=== PATIENT | female | born 1980 | race Caucasian/White ===

== ENCOUNTER → 2017-07-01 | Outpatient (CLI) | payer OTHER ==
[2017-07-01 13:36] VITALS: BP 138/87; PULSE 116; RESP 16; TEMP 98.6; BMI 50.5
--- NOTE | 2017-07-01 14:21 | P.HPOB ---
History of Present Illness H&P Date: 07/01/17 Chief Complaint: The patient is here for her routine gynecologic exam. This is a 36-year-old G0 with an LMP of 06/22/2017. She states she had an episode of vulvar pruritus prior to her menses 2 months ago. She states that lasted only about 2 days. She did not have any unusual discharge or odor at that time. She is otherwise without complaints. Review of Systems She has gained about 6 pounds over the last 2 years. She denies respiratory, cardiac, or G.I. problems. Past Medical History Additional Past Medical History / Comment(s): Celiac disease which is diet controlled. 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 Additional Past Surgical History / Comment(s): Upper endoscopy and colonoscopy in 2012. Past Psychological History: No Psychological Hx Reported Smoking Status: Never smoker Past Alcohol Use History: None Reported Past Drug Use History: None Reported Additional History: She is single and is not seeing anybody at this time. 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 [employer] - Past Family History Mother Family Medical History: Thyroid Disorder Medications and Allergies Home Medications Medication Instructions Recorded Confirmed Type Cholecalciferol (Vitamin D3) 5,000 unit PO WEEKLY 07/01/17 07/01/17 History [Vitamin D3] Allergies Allergy/AdvReac Type Severity Reaction Status Date / Time No Known Allergies Allergy Verified 07/01/17 14:12 Exam - Vital Signs Vital signs: Vital Signs Temp Pulse Resp BP 07/01/17 13:29 98.6 F 116 H 16 138/87 Intake and Output 06/30/17 07/01/17 07/01/17 22:59 06:59 14:59 Other: Weight 142 kg Height 5'6" BMI 22.9. This is a well-developed well-nourished white female who is alert and oriented times 3 in no acute distress. HEENT: Within normal limits. NECK: Supple without mass or thyromegaly. CHEST AND LUNGS: Clear to auscultation. HEART: Regular rate and rhythm. BREASTS: Are without mass or discharge. AXILLARY EXAM: Negative for adenopathy. BACK: Negative for CVA tenderness. ABDOMEN: Soft, nontender, without palpable masses. PELVIC EXAM: Normal external genitalia. The introitus is virginal and a small speculum was used without difficulty. Cervix and vagina appear normal. There is no unusual discharge. There is no evidence of prolapse. The uterus is midposition, nongravid size and nontender. There are no palpable adnexal masses or tenderness. RECTAL EXAM: deferred EXTREMITIES: Nontender. IMPRESSION: 1. 36-year-old gynecologically healthy female. 2. Brief vulvar pruritus 2 months ago which resolved with no evidence of vaginitis at this time. PLAN: 1. Pap smear was performed. 2. Self breast awareness was discussed. 3. Osteoporosis prevention was discussed. 4. She will return in one year or PRN.
== END ==
LOC: WWCWWP 13:17
PROVIDERS: ATTEND Obstetrics & Gynecology
DX: Z53.9 Procedure and treatment not carried out, unspecified reason (principal)

== ENCOUNTER → 2018-12-23 | Outpatient (CLI) | payer BC ==
[2018-12-23 10:49] VITALS: BP 143/81; PULSE 70; RESP 16; TEMP 98.7; BMI 20.1
--- NOTE | 2018-12-23 12:05 | P.HPOB ---
History of Present Illness H&P Date: 12/23/18 Chief Complaint: The patient is here for her routine gynecologic exam. This is a 38-year-old G0 with an LMP of 12/06/2018. The patient states she has had some changes with her menstrual period. They are regular every 24 days. They are now lasting 6-7 days when they previously were about 5 days long. The second and third day to be heavier and she has to change her protection about every 1-1/2 hours. She does have to use Motrin on the heavy days for cramps and discomfort. Every other month she tends to have a nauseous feeling during her menstrual periods. She also feels like her IBS might be aggravated by her periods at those times. She has also been experiencing a slight vulvar pruritus for the past 1-2 weeks. She denies discharge or odor. Review of Systems The patient has lost about 10 pounds over the past year. She denies respiratory or cardiac problems. GI: Occasional IBS symptoms. Past Medical History Additional Past Medical History / Comment(s): Celiac disease which is diet con trolled. 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 History of Any Multi-Drug Resistant Organisms: None Reported Additional Past Surgical History / Comment(s): Upper endoscopy and colonoscopy in 2012. Past Psychological History: No Psychological Hx Reported Smoking Status: Never smoker Past Alcohol Use History: None Reported Past Drug Use History: None Reported Additional History: She is single and is not seeing anybody at this time. 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 - Past Family History Mother Family Medical History: Thyroid Disorder Medications and Allergies Home Medications Medication Instructions Recorded Confirmed Type Bacillus Coagulans/Inulin 1 each PO DAILY 12/23/18 12/23/18 History [Probiotic with Prebiotic Cap] Pnv No.95/Ferrous Fum/Folic AC 1 each PO DAILY 12/23/18 12/23/18 History [ Multivitamin Tablet] Allergies Allergy/AdvReac Type Severity Reaction Status Date / Time No Known Allergies Allergy Verified 12/23/18 10:49 Exam Vital Signs Temp Pulse Resp BP Pulse Ox 12/23/18 10:43 98.7 F 70 16 143/81 100 Intake and Output 12/22/18 12/23/18 12/23/18 22:59 06:59 14:59 Other: Weight 56.699 kg Height 5 feet 6 inches, weight 125 pounds, BMI 20.2. This is a well-developed well-nourished white female who is alert and oriented times 3 in no acute distress. HEENT: Within normal limits. NECK: Supple without mass or thyromegaly. CHEST AND LUNGS: Clear to auscultation. HEART: Regular rate and rhythm. BREASTS: Are without mass or discharge. AXILLARY EXAM: Negative for adenopathy. BACK: Negative for CVA tenderness. ABDOMEN: Soft, nontender, without palpable masses. PELVIC EXAM: Normal external genitalia. There is no significant erythema and there are no lesions. Cervix and vagina appear normal. There is no unusual discharge. There is no evidence of prolapse. The uterus is anteverted and tilted slightly to the right and is nontender. This finding is consistent with her 2014 exam and normal pelvic ultrasound done in 2014. There are no palpable adnexal masses or tenderness. RECTAL EXAM: negative for mass or tenderness. EXTREMITIES: Nontender. IMPRESSION: 1. 38-year-old female with normal gynecologic exam. 2. Mild hypermenorrhea without any significant physical findings. 3. Slight vulvar pruritus 1-2 weeks without significant physical findings. No evidence of vaginitis. 4. Mild blood pressure elevation. PLAN: 1. Pap smear was deferred since she had a normal one on 07/18/2017. 2. Self breast awareness was discussed with the patient. 3. Trial of meclofenamate sodium 100 mg 3 times a day when necessary for heavy menstrual flow up to 6 days per cycle. She will keep a menstrual calendar. 4. Kenalog 0.1% cream twice a day when necessary for vulvar pruritus. 5. I recommended that she check her own blood pressure on a regular basis. She was instructed to follow-up with Dr. Charlton for blood pressure elevations. 6. She was advised to return in one year for her annual well woman exam. She will also return if problems or no improvement with her menstrual periods
== END | disposition home or self-care (01) ==
LOC: WWCWWP 10:35
PROVIDERS: ATTEND Obstetrics & Gynecology
DX: Z53.9 Procedure and treatment not carried out, unspecified reason (principal)

== ENCOUNTER → 2019-10-26 | Outpatient (CLI) | payer BC ==
[2019-10-26 15:39] VITALS: BP 152/90; PULSE 84; RESP 18; TEMP 98.6
--- NOTE | 2019-10-26 17:47 | P.HPOB ---
History of Present Illness H&P Date: 10/26/19 Chief Complaint: Abnormal vaginal discharge and vaginal spotting that started 1 month ago. This is a 39-year-old G0 with an LMP of 10/15/2019. The patient's boyfriend is status post vasectomy. The patient was having heavier menstrual periods that were more crampy. The patient tried meclofenamate sodium with no significant improvement. She was started on oral contraception in January 2019 by her PCP. She was started on Loestrin 03/22 and was given instructions to take them continuously without the inactive pills. 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 About 1 month ago she developed a clear yellowish discharge with pruritus and vaginal odor that would fill a panty liner over 1 day's time. This lasted for about 1-1 /2 weeks and did improve but went into some vaginal spotting and light bleeding. She no longer has the pruritus or vaginal odor. The light vaginal bleeding and spotting has gone on for about 11 days. Review of Systems She has lost about 7 pounds over the past year. She denies respiratory or cardiac problems. GI: Constipation. Past Medical History Additional Past Medical History / Comment(s): Celiac disease which is diet controlled. 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 History of Any Multi-Drug Resistant Organisms: None Reported Additional Past Surgical History / Comment(s): Upper endoscopy and colonoscopy in 2012. Past Psychological History: No Psychological Hx Reported Smoking Status: Never smoker Past Alcohol Use History: None Reported Past Drug Use History: None Reported Additional History: She is single and has had a boyfriend since about April 2019. She is sexually active. 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 - Past Family History Mother Family Medical History: Thyroid Disorder Medications and Allergies Home Medications Medication Instructions Recorded Confirmed Type Pnv No.95/Ferrous Fum/Folic AC 1 each PO DAILY 12/23/18 10/26/19 History [ Multivitamin Tablet] Triamcinolone 0.1% Cream [Kenalog 1 applicatio TOPICAL BID PRN #30 gm 12/23/18 10/26/19 Rx 0.1% Cream] Norethindrone-E.estradiol-Iron 1 each PO DAILY 10/26/19 10/26/19 History [Aurovela Fe 1-20 Tablet] Omeprazole 20 mg PO DAILY 10/26/19 10/26/19 History Triamcinolone 0.025% Cream 1 applic TOPICAL DAILY 10/26/19 10/26/19 History [Kenalog 0.025% Cream] Allergies Allergy/AdvReac Type Severity Reaction Status Date / Time gluten Allergy Nausea & Unverified 10/26/19 15:32 Vomiting & Diarrhea Exam Vital Signs Temp Pulse Resp BP Pulse Ox 10/26/19 15:37 98.6 F 84 18 152/90 98 Intake and Output 10/26/19 10/26/19 10/26/19 06:59 14:59 22:59 Other: Weight 53.524 kg Height 5 feet 6 inches, weight 118 pounds, BMI 19.0. This is a well-developed well-nourished white female who is alert and oriented times 3 in no acute distress. Physical examination was limited to address her complaints. ABDOMEN: Soft, nontender, without palpable masses. PELVIC EXAM: Normal external genitalia. Cervix and vagina appear normal. There is no unusual discharge. There is no evidence of prolapse. The uterus is midposition, nongravid size and nontender. There are no palpable adnexal masses or tenderness. RECTAL EXAM: Deferred IMPRESSION: 1. 39-year-old female on continuous low-dose oral contraception used for hypermenorrhea and dysmenorrhea. 2. Breakthrough bleeding on the continuous oral contraception with light bleeding in August of this year and 10/14/2021 present. 3. Abnormal vaginal discharge 1 month ago with pruritus and the vaginal odor. These symptoms have improved and there are no significant physical findings on examination. Differential diagnosis will include Asiya vaginitis, bacterial vaginosis, GC, Chlamydia or Trichomonas. Physiologic discharge is also possible. 4. Blood pressure elevation. PLAN: 1. GC and Chlamydia testing was obtained from the cervix. Affirm testing for asiya, Gardnerella, and Trichomonas was also obtained from the vagina. 2. We had a long discussion regarding her breakthrough bleeding on low-dose oral contraception which is being used for her hypermenorrhea and dysmenorrhea. We discussed the option of changing to a higher estrogen dose control pill such as Loestrin .07/30. When we discussed this, I had not realize that her blood pressure was elevated. I have tried to contact the patient by phone to discuss other options. When I do get ahold of her we will discuss options such as the Mirena IUD, endometrial ablation, and continuation of oral contraception with close blood pressure monitoring. I have left a voicemail message for the patient to call me back so we can discuss this. 3. She will be due for her annual examination in approximately 3 months and I recommended that she make an appointment for this. Addendum: I was able to reach the patient to discuss her blood pressure elevation. She states that she has had some issues with slightly higher blood pressure when she is in a doctor's office but has been able to take her blood pressure on a regular basis at work and blood pressures have been normal. We discussed options such as the Mirena IUD for her menstrual problems as well as options such as endometrial ablation if she does not desire childbearing. She would like to continue on the control pills. We will have a trial with Loestrin 1.5/30 to be used and a semi-continuous fashion. She will use the inactive pills about every 3-4 months and we'll skip the inactive pills and start the next pack of pills during the other months. She states she will check her blood pressure on a regular basis at work and altered times of day when she checks it. She will keep a log of her blood pressures and she will contact me if she is having blood pressures consistently over 140/90. The electronic prescription for the control pills will be sent to my her pharmacy in [place]. Since she has been taking her other pills continuously without the inactive pills, she was instructed to make the change on Friday to the new pills.
[2019-10-27 03:53] LABS: Gardnerella Negative (Negative); Source Vagina; Trichomonas Negative (Negative)
--- NOTE | 2019-10-27 09:23 | P.PN ---
Progress Note - Text Progress Note Date: 10/27/19 OUTPATIENT FOLLOW-UP NOTE TEST(S)/RESULTS: Test results from a 10/26/2019 include affirm testing which was positive for Asiya and negative for trichomonas and Gardnerella. METHOD OF NOTIFICATION: She was notified by phone PATIENT COMMENTS: The patient was having symptoms as described in the H&P. She was having discharge and itching that started about a month ago but did improve. She states that today she has been having itching as well. She has taken her blood pressure 2 times since she was here yesterday and they were both normal. The systolic blood pressure today was 118 and she does not remember the diastolic number. DIAGNOSIS: Asiya vaginitis. DISCUSSION: PLAN: Diflucan 150 mg by mouth 1. She will continue to check her own blood pressure on a regular basis and call if she is having blood pressure elevations. GC and chlamydia screening is still pending. She will also return in about 3 months for her annual examination. The electronic prescription will be sent to my her pharmacy in [place].
[2019-10-28 08:16] LABS: C. trachomatis,PCR Negative (Neg,Equiv); Chlamydia trachomatis Source Cervix; N. gonorrhoeae,PCR Negative (Neg,Equiv); Neisseria Source Cervix
== END | disposition home or self-care (01) ==
LOC: WWCWWP 15:14
PROVIDERS: ATTEND Obstetrics & Gynecology
DX: Z11.3 Encounter for screening for infections with a predominantly sexual mode of transmission (principal); N89.8 Other specified noninflammatory disorders of vagina
CPT/HCPCS: 87480; 87491; 87510; 87591; 87660

== ENCOUNTER 2019-11-26 06:41 | Day surgery (SDC) | payer BC ==
[2019-11-24 14:20] VITALS: BMI 18.6
[~2019-11-26 06:41] MED LIST: LACTATED RINGERS 1,000 ML IV SCH; LIDOCAINE 1% (10MG/ML) FOR IV START INTRADERMA PRN
[2019-11-26 07:13] VITALS: TEMP 98.9
[2019-11-26] MEDS ORDERED: PROPOFOL 10 MG/ML 20 ML VIAL IV ONE (07:34)
--- NOTE | 2019-11-26 08:01 | P.PCN ---
Date of Procedure: 11/26/19 Procedure(s) Performed: BRIEF HISTORY: Patient is a 39-year-old pleasant female scheduled for an elective colonoscopy as a part of evaluation of abdominal pain and change in bowel habits for the last several years duration. He hasn't been progressively getting worse. PROCEDURE PERFORMED: Colonoscopy with random biopsies. PREOPERATIVE DIAGNOSIS: Lower abdominal pain and change in bowel habits. IV sedation per Anesthesia. PROCEDURE: After informed consent was obtained, the patient, was brought into the endoscopy unit. IV sedation was administered by Anesthesia under continuous monitoring. Digital rectal examination was normal. Initially the Olympus CF-160 flexible video colonoscope was then inserted in the rectum, gradually advanced into the cecum without any difficulty. Careful examination was performed as the scope was gradually being withdrawn. Ileocecal valve and the appendiceal orifice were visualized and appeared normal. Prep was excellent. Terminal ileum was intubated and 20 cm visualized that had some lymphoid hyperplasia and biopsies were done from this area. Mucosa of the cecum, ascending colon, transverse colon, descending colon, sigmoid colon, and rectum appeared normal. Random biopsies were done from ascending and descending colon to rule out colitis. Retroflexion was performed in the rectum and no lesions were seen. The patient tolerated the procedure well. IMPRESSION: Normal-appearing colon from rectum to cecum with no evidence of colitis or colorectal neoplasia Normal-appearing terminal ileum . RECOMMENDATIONS: Findings of this examination were discussed with the patient as well as her family. She was advised to follow with the biopsy results. She will be seen in office if needed based on her symptoms.
[2019-11-26 08:02] VITALS: RESP 16
[2019-11-26 08:14] VITALS: BP 119/68; PULSE 78
== END 2019-11-26 08:34 | disposition home or self-care (01) ==
LOC: ORWHC2ENDO 06:41
PROVIDERS: ATTEND Internal Medicine Gastroenterology
DX: K58.9 Irritable bowel syndrome, unspecified (principal); K63.89 Other specified diseases of intestine; Z79.899 Other long term (current) drug therapy; Z91.018 Allergy to other foods; Z98.890 Other specified postprocedural states
CPT/HCPCS: 81025; 88305; 45380; J2704

== ENCOUNTER → 2019-12-22 | Outpatient (CLI) | payer BC ==
[2019-12-22 08:01] VITALS: BP 147/82; PULSE 81; RESP 18; TEMP 98.5
--- NOTE | 2019-12-22 08:59 | P.HPOB ---
History of Present Illness H&P Date: 12/22/19 Chief Complaint: The patient is here for her routine gynecologic exam. This is a 39-year-old G0 with an LMP of 12/16/2019. The patient was previously using Loestrin 1/20 continuously for control and for her history of hypermenorrhea. She had done well with this for several months. She previously was having light bleeding every other month on continuous oral contraception. In the month of October light vaginal bleeding and spotting went on free prolonging the length of time. She was started on Loestrin 1.5/30 to see if a higher control pill dose would help with the breakthrough bleeding. She took these continuously and bleeding became heavier. After she called on 12/14/2019 because of the abnormal bleeding, she was instructed to discontinue the oral contraception that week and restart oral contraception the following Friday. 2 days after stopping the oral contraception, her bleeding became very heavy for 2 days. It was travel med surg rn on the third day, but again became heavier the following day. She started a new pack of Loestrin 1/20 on that third day of heavier bleeding which was 12/19/2019. The bleeding is now travel med surg rn. She would like to continue on with Loestrin 1/20. She has checked her own blood pressure and the systolic was in the 130s. She is otherwise without complaints. Review of Systems She has lost about 10 pounds with exercise earlier in the year. She is now at her desired weight. She denies respiratory or cardiac problems. GI: She has been having problems with constipation and diarrhea and has been diagnosed with irritable bowel syndrome. Past Medical History Additional Past Medical History / Comment(s): Celiac disease which is diet controlled. 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 History of Any Multi-Drug Resistant Organisms: None Reported Additional Past Surgical History / Comment(s): Upper endoscopy and colonoscopy in 2012. Colonoscopy 11/26/2019 Past Anesthesia/Blood Transfusion Reactions: No Reported Reaction Past Psychological History: No Psychological Hx Reported Smoking Status: Never smoker Past Alcohol Use History: None Reported Past Drug Use History: None Reported Additional History: She is single and has been with her boyfriend since April 2019. She is sexually active and does not live with him. 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 - Past Family History Mother Family Medical History: Thyroid Disorder Medications and Allergies Home Medications Medication Instructions Recorded Confirmed Type Pnv No.95/Ferrous Fum/Folic AC 1 each PO DAILY 12/23/18 12/22/19 History [ Multivitamin Tablet] Omeprazole 20 mg PO DAILY PRN 10/26/19 12/22/19 History Triamcinolone 0.025% Cream 1 applic TOPICAL DAILY 10/26/19 12/22/19 History [Kenalog 0.025% Cream] L.acidoph,Paracasei, B.lactis 1 each PO DAILY 11/24/19 12/22/19 History [Probiotic] Norethindrone-E.estradiol-Iron 1 tab PO HS 11/24/19 12/22/19 History [Loestrin Fe 1.5-30 Tablet] Ascorbic Acid [Vitamin C] 500 mg PO DAILY 12/22/19 12/22/19 History Ferrous Sulfate [Feosol] 325 mg PO DAILY 12/22/19 12/22/19 History Allergies Allergy/AdvReac Type Severity Reaction Status Date / Time gluten Allergy Nausea & Verified 12/22/19 07:55 Vomiting & Diarrhea Exam Vital Signs Temp Pulse Resp BP Pulse Ox 12/22/19 07:59 98.5 F 81 18 147/82 100 Intake and Output 12/21/19 12/22/19 12/22/19 22:59 06:59 14:59 Other: Weight 55.338 kg Repeat blood pressure 130/62. Height 5 feet 5 inches, weight 122 pounds, BMI 20.3. This is a well-developed well-nourished white female who is alert and oriented times 3 in no acute distress. HEENT: Within normal limits. NECK: Supple without mass or thyromegaly. CHEST AND LUNGS: Clear to auscultation. HEART: Regular rate and rhythm. BREASTS: Are without mass or discharge. AXILLARY EXAM: Negative for adenopathy. BACK: Negative for CVA tenderness. ABDOMEN: Soft, nontender, without palpable masses. PELVIC EXAM: Normal external genitalia. Cervix and vagina appear normal. There is a minimal amount of dark blood in the vagina. There is no unusual discharge. There is no evidence of prolapse. The uterus is midposition, nongravid size and nontender. There are no palpable adnexal masses or tenderness. RECTAL EXAM: Deferred EXTREMITIES: Nontender. IMPRESSION: 1. 39-year-old female with normal gynecologic exam. 2. Recent dysfunctional uterine bleeding on continuous oral contraception. PLAN: 1. Pap smear was performed. 2. Self breast awareness was discussed with the patient. 3. The patient had a withdrawal bleed this past week after stopping the continuous oral contraception on 12/14/2019. Loestrin 120 was restarted on 12/19/2019 and her bleeding seems to have decreased. She understands that she may have some irregular bleeding this month and at the dysfunctional uterine bleeding may have been from some endometrial overgrowth after using prolonged continuous oral contraception. I have recommended that she take the oral contraception cyclically with 1 week of inactive pills or no pills after 3 weeks of active pills. She should do this for at least 2-3 months and until she has regular menstrual periods. She was instructed to call if she continues to have dysfunctional bleeding. If they are regular when she has been using cyclic oral contraception, we can consider semi-continuous oral contraception where every 3 or 4 packs she does use the inactive pills for 1 week. A prescription for Loestrin 120s will be sent to my her pharmacy in [place]. 4. The patient was instructed to check her blood pressure on a regular basis and to call if they are consistently high. 5. She is to return in approximately 4-6 months for a blood pressure check and a recheck of her control pills. She will continue to use a menstrual calendar. 6. She will also return in one year and as needed.
--- NOTE | 2020-01-04 16:37 | P.PN ---
Progress Note - Text Progress Note Date: 01/04/20 OUTPATIENT FOLLOW-UP NOTE TEST(S)/RESULTS: Pap smear from 12/22/2019 showed low-grade ANNETTE. METHOD OF NOTIFICATION: She was notified by phone. PATIENT COMMENTS: She states she has not had any problems with abnormal Pap smears in the past. She continues to have some irregular bleeding on the control pills. DIAGNOSIS: Low-grade ANNETTE Pap smear. DISCUSSION: We will await the high-risk HPV testing which is pending at this time. If this is negative, plan repeating both tests in 12 months. If it is positive she will be referred for colposcopic examination. If she continues to have abnormal breakthrough bleeding with oral contraception, we will also consider endometrial biopsy or referral for further evaluation. PLAN: Await high-risk HPV testing as above.
== END | disposition home or self-care (01) ==
LOC: WWCWWP 07:46
PROVIDERS: ATTEND Obstetrics & Gynecology
DX: Z53.9 Procedure and treatment not carried out, unspecified reason (principal)

== ENCOUNTER → 2020-03-10 | Outpatient (CLI) | payer BC ==
[2020-03-10 16:49] LABS: Basophils % (A) 1 %; Eosinophils # (A) 0.2 k/uL (0-0.7); Eosinophils % (A) 3 %; HGB 10.4 gm/dL (11.4-16.0); Lymphocytes # (A) 1.5 k/uL (1.0-4.8); Lymphocytes % (A) 34 %; MCH 29.5 pg (25.0-35.0); MCHC 31.6 g/dL (31.0-37.0); MCV 93.2 fL (80.0-100.0); Mean Platelet Volume 7.4; Monocytes # (A) 0.2 k/uL (0-1.0); Monocytes % (A) 5 %; Neutrophils # (A) 2.4 k/uL (1.3-7.7); Neutrophils % (A) 55 %; Platelet Count 263 k/uL (150-450); RBC 3.54 m/uL (3.80-5.40); WBC 4.4 k/uL (3.8-10.6)
== END | disposition home or self-care (01) ==
LOC: LABPAT 15:59
PROVIDERS: ATTEND Obstetrics & Gynecology
DX: Z01.818 Encounter for other preprocedural examination (principal); N93.8 Other specified abnormal uterine and vaginal bleeding
CPT/HCPCS: 36415; 85025

== ENCOUNTER 2020-04-03 10:28 | Day surgery (SDC) | payer BC ==
[2020-03-30 09:01] VITALS: BMI 19.3
[~2020-04-03 10:28] MED LIST changes: -LACTATED RINGERS 1,000 ML IV SCH; -LIDOCAINE 1% (10MG/ML) FOR IV START INTRADERMA PRN; +Pre Op ABX Message 1 EACH MISC MISCELLANE ONE
[2020-04-03 11:04] VITALS: RESP 16
[2020-04-03] MEDS ORDERED: ONDANSETRON 4 MG/2 ML VIAL ONE (11:11)
[2020-04-03] MEDS ORDERED: LACTATED RINGERS 1,000 ML IV ONE ×2 (11:13→13:22)
[2020-04-03] MEDS ORDERED: LIDOCAINE 1% (10MG/ML) FOR IV START INTRADERMA ONE (11:13)
[2020-04-03] MEDS ORDERED: DEXAMETHASONE SOD PHOSPHATE 10 MG/ML 1 ML VIAL IV ONE (11:14)
[2020-04-03] MEDS ORDERED: ONDANSETRON 4 MG/2 ML VIAL IVP ONE ×2 (11:14→13:22)
[2020-04-03] MEDS ORDERED: MIDAZOLAM 2 MG/2 ML VIAL ONE (12:04)
[2020-04-03] MEDS ORDERED: PROPOFOL 10 MG/ML 20 ML VIAL IV ONE (12:04)
[2020-04-03] MEDS ORDERED: KETOROLAC 15 MG/ML 1 ML VIAL ONE (12:04)
[2020-04-03] MEDS ORDERED: fentaNYL (PF) 50 MCG/ML 2 ML AMP ONE (12:04)
[2020-04-03] MEDS ORDERED: LIDOCAINE 1% INJ 10MG/ML (20 ML MDV) ONE (12:04)
[2020-04-03] MEDS ORDERED: METOCLOPRAMIDE 5 MG/ML 2 ML VIAL IVP PRN (12:36)
[2020-04-03] MEDS ORDERED: SIMETHICONE 80 MG CHEWABLE PO PRN (12:36)
[2020-04-03] MEDS ORDERED: KETOROLAC 15 MG/ML 1 ML VIAL IVP PRN (12:36)
[2020-04-03] MEDS ORDERED: diphenhydrAMINE 50 MG/ML 1 ML VIAL IVP PRN (12:36)
[2020-04-03] MEDS ORDERED: ONDANSETRON 4 MG/2 ML VIAL IVP PRN (12:36)
[2020-04-03] MEDS ORDERED: Acetaminophen-Codeine 300-30mg TAB PO PRN ×2 (12:36)
[2020-04-03] MEDS ORDERED: IBUPROFEN 600 MG TAB PO PRN (12:36)
--- NOTE | 2020-04-03 12:43 | P.OP ---
Date of Procedure: 04/03/20 Preoperative Diagnosis: #1. Dysfunctional uterine bleeding #2. Fibroid uterus Postoperative Diagnosis: Same Procedure(s) Performed: 1. Diagnostic hysteroscopy #2. Dilation and curettage Anesthesia: other Surgeon: Danish Smith Estimated Blood Loss (ml): 5 IV fluids (ml): 600 Urine output (ml): 150 Pathology: other Condition: stable (Endometrial curettings) Disposition: PACU Operative Findings: Preoperative pelvic examination demonstrated a 5-6 week mid plane mobile normal shaped uterus with normal adnexa bilaterally. Intraoperatively, the bilateral tubal ostial regions were seen and the ostium cells were covered by shaggy tissue. There was a moderate to significant amount of shaggy tissue and perhaps polyps along the posterior wall of the entire length of the uterus to the cervix. The anterior wall appeared to be free of any tissue. A moderate amount of tissue was brought out with curettage onto a Telfa placed in the vagina. Description of Procedure: The patient was prepped and draped in usual fashion after general anesthesia was initially by the anesthesiologist. A weighted speculum was placed in the bladder drained of approximately 150 mL of clear randy urine. The anterior lip of the cervix was grasped with single-tooth tenaculum and uterus sounded to 10 cm. Serial dilation was carried out to admit the diagnostic hysteroscope which was placed to the fundus of the uterus. The endometrial cavity was then distended with sorbitol and the findings are as noted above. There was a moderate to significant amount tissue along the posterior wall of the uterus, possibly polypoid in nature. The tubal ostia were not seen but the regions were normal in appearance but obscured secondary to shaggy tissue. After adequate hysteroscopy been carried out, the scope was set aside in favor of a medium sharp curette. A Telfa was placed in the vagina and thorough and circumferential curettage carried out bringing the tissue out of the endometrial cavity onto the Telfa in the vagina. There was a moderate amount of tissue produced. The typical gritty texture was encountered throughout. The the tissue was sent for pathological diagnoses and all instrumentation removed. One of the points of the tenaculum was noted be bleeding and made hemostatic with pressure. Estimated blood loss for the entire case was approximate 5 mL or less. Her were no complications. All sponge, instrument, needle counts were correct. The patient tolerated the procedure well and proceeded to the recovery room in stable condition.
[2020-04-03 12:44] VITALS: TEMP 97.4
[2020-04-03] MEDS ORDERED: LACTATED RINGERS 1,000 ML IV SCH ×2 (12:45→13:22)
[2020-04-03] MEDS ORDERED: MIDAZOLAM 2 MG/2 ML VIAL IV PRN (13:22)
[2020-04-03] MEDS ORDERED: HYDROmorphone 0.5 MG/0.5 ML SYRINGE IVP PRN (13:22)
[2020-04-03] MEDS ORDERED: DEXAMETHASONE SOD PHOSPHATE 4 MG/ML 1 ML VIAL IV ONE (13:22)
[2020-04-03] MEDS ORDERED: LIDOCAINE 1% (10MG/ML) FOR IV START INTRADERMA PRN (13:22)
[2020-04-03] MEDS ORDERED: IBUPROFEN 200 MG TAB PO ONE (13:35)
[2020-04-03 13:57] VITALS: BP 127/71; PULSE 66
== END 2020-04-03 14:20 | disposition home or self-care (01) ==
LOC: OR 10:28
PROVIDERS: ATTEND Obstetrics & Gynecology
DX: D25.9 Leiomyoma of uterus, unspecified (principal); K21.9 Gastro-esophageal reflux disease without esophagitis; K58.9 Irritable bowel syndrome, unspecified; Z91.018 Allergy to other foods; Z83.49 Family history of other endocrine, nutritional and metabolic diseases
CPT/HCPCS: 81025; 88305; 58558; J2250; J1100; J2405; J2001; J3010; J1885; J2704

== ENCOUNTER → 2020-06-08 | Outpatient (CLI) | payer BC ==
[2020-06-08 16:09] LABS: Basophils # (A) 0.1 k/uL (0-0.2); Basophils % (A) 1 %; Eosinophils # (A) 0.2 k/uL (0-0.7); Eosinophils % (A) 3 %; HCT 35.9 % (34.0-46.0); HGB 11.5 gm/dL (11.4-16.0); Hypochromasia Slight; Lymphocytes # (A) 1.9 k/uL (1.0-4.8); Lymphocytes % (A) 28 %; MCH 26.8 pg (25.0-35.0); MCHC 32.1 g/dL (31.0-37.0); MCV 83.6 fL (80.0-100.0); Mean Platelet Volume 7.6; Monocytes # (A) 0.5 k/uL (0-1.0); Monocytes % (A) 7 %; Neutrophils # (A) 3.9 k/uL (1.3-7.7); Neutrophils % (A) 59 %; Platelet Count 274 k/uL (150-450); RDW 14.5 % (11.5-15.5); WBC 6.6 k/uL (3.8-10.6)
== END | disposition home or self-care (01) ==
LOC: LABWHC1 15:17
PROVIDERS: ATTEND Obstetrics & Gynecology
DX: Z01.818 Encounter for other preprocedural examination (principal); N92.0 Excessive and frequent menstruation with regular cycle
CPT/HCPCS: 36415; 85025

== ENCOUNTER 2020-06-16 08:40 | Day surgery (SDC) | payer BC ==
[2020-06-13 08:32] VITALS: BMI 19.3
[~2020-06-16 08:40] MED LIST changes: +DEXAMETHASONE SOD PHOSPHATE 4 MG/ML 1 ML VIAL IV ONE; +LACTATED RINGERS 1,000 ML IV SCH; +LIDOCAINE 1% (10MG/ML) FOR IV START INTRADERMA PRN; +MIDAZOLAM 2 MG/2 ML VIAL IV PRN; +ONDANSETRON 4 MG/2 ML VIAL IVP ONE
[2020-06-16 09:13] VITALS: RESP 16
[2020-06-16] MEDS ORDERED: PROPOFOL 10 MG/ML 20 ML VIAL IV ONE (10:16)
[2020-06-16] MEDS ORDERED: MIDAZOLAM 2 MG/2 ML VIAL ONE (10:16)
[2020-06-16] MEDS ORDERED: LIDOCAINE 1% INJ 10MG/ML (20 ML MDV) ONE (10:16)
[2020-06-16] MEDS ORDERED: KETOROLAC 15 MG/ML 1 ML VIAL ONE (10:16)
[2020-06-16] MEDS ORDERED: fentaNYL (PF) 50 MCG/ML 2 ML AMP ONE (10:16)
[2020-06-16] MEDS ORDERED: FERRIC SUBSULFATE (MONSELS) JAR TOPICAL ONE (10:51)
[2020-06-16] MEDS ORDERED: diphenhydrAMINE 50 MG/ML 1 ML VIAL IVP PRN (11:03)
[2020-06-16] MEDS ORDERED: Acetaminophen-Codeine 300-30mg TAB PO PRN ×2 (11:03)
[2020-06-16] MEDS ORDERED: SIMETHICONE 80 MG CHEWABLE PO PRN (11:03)
[2020-06-16] MEDS ORDERED: ONDANSETRON 4 MG/2 ML VIAL IVP PRN (11:03)
[2020-06-16] MEDS ORDERED: KETOROLAC 15 MG/ML 1 ML VIAL IVP PRN (11:03)
[2020-06-16] MEDS ORDERED: METOCLOPRAMIDE 5 MG/ML 2 ML VIAL IVP PRN (11:03)
[2020-06-16] MEDS ORDERED: IBUPROFEN 600 MG TAB PO PRN (11:03)
[2020-06-16] MEDS: HYDROmorphone 0.5 MG/0.5 ML SYRINGE IVP PRN ×2 (11:07→11:14)
--- NOTE | 2020-06-16 11:12 | P.OP ---
Date of Procedure: 06/16/20 Preoperative Diagnosis: #1. Menorrhagia #2. Fibroid uterus #3. Perineal condyloma 2 Postoperative Diagnosis: Same Procedure(s) Performed: #1. Diagnostic hysteroscopy #2. NovaSure endometrial ablation #3. Excision of perineal condyloma 2 Anesthesia: other (Gen. by LMA) Surgeon: Danish Smith Estimated Blood Loss (ml): 5 IV fluids (ml): 400 Urine output (ml): 50 Pathology: other (Probable perineal condyloma 2) Condition: stable Disposition: PACU Operative Findings: Prior to today's surgery, the patient had undergone diagnostic hysteroscopy with D&C approximately 4 months ago for both diagnostic and therapeutic reasons. She had had significant irregular bleeding at that time. The irregularity has resolved, however the heaviness has not and she has requested more definitive therapy. She additionally was found in the office with 2 very small right perineal body condyloma. She was taken the operating room where she underwent diagnostic hysteroscopy whereby both of the tubal ostia were seen though the view was somewhat obscured secondary to the patient being on her menses. There was no apparent pathology. The uterus sounded to 9 cm with a cervical length of approximately 3.5 cm. The settings for the NovaSure tool where a length of 5.5 cm, a width of 4.2 cm for an initial power 127 W..Tool ran for 42 seconds during which time it had to vacuum failures and was subsequently discarded. It was replaced with a second tool who I had settings of a length of 5.5 cm, a width of 4.0 cm for a total power 121 seconds. The total count of the ablation time then resumed after 42 seconds and a for a total run time of 93 seconds after which time the base unit read "procedure complete." The postprocedural result appeared to be excellent. The patient is a potential candidate for vaginal hysterectomy should it become necessary. Description of Procedure: The patient was prepped and draped in usual fashion after general anesthesia was administered by the anesthesiologist. A weighted speculum was placed and the bladder drained of 50 mL of clear randy urine. The anterior lip of the cervix was grasped with [place] 2 tenaculum and uterus sounded to 9 cm with a cervical length of 3.57 m. Serial dilation was carried out to admit the diagnostic hysteroscope which was placed to the fundus and the in vitro cavity distended with saline. The findings are as noted above. There was some obscuring of vision secondary to the patient's ongoing menses. After adequate hysteroscopy and no evidence of pathology, the scope was set aside in the NovaSure tool was placed and seated well with the settings as noted above, I length of 5.5 cm, a width of 4.2 cm for a total power 127 W. The cavity check was attempted and passed without difficulty and the tool was enabled. The run was started and, after a total run time of 42 seconds and 2 failures of the vacuum, the tool was closed, removed, and discarded in favor of a new tool which was placed into the endometrial cavity with a length of 5.5 cm, a width of 4.0 cm for a total power 121 W. The cavity check was passed again and the run was restarted. After a total run time including the first tool of 93 seconds, the base unit read "procedure complete." The 2 was removed and discarded and the diagnostic scope replaced with the results appearing to be excellent. The patient is a good candidate for vaginal instructed he should become necessary. Following completion of the ablation, attention was turned to the 2 small condylomatous appearing structures on the right perineal body which were elevated with a forceps and removed with the Tamayo scissors. Both were placed in a specimen container together and sent to pathology for diagnoses. Any bleeding from that site was made hemostatic with Monsel solution. Bleeding from one of the tenaculum sites was made hemostatic with pressure and there was no other significant ongoing bleeding from the cervix otherwise. As a blood loss for the entire case was approximate 5 mL. There were no compilations. All sponge, instrument, and needle counts were correct. The patient tolerated the procedure well and proceeded to the recovery room in stable condition.
[2020-06-16 11:15] VITALS: TEMP 98.3
[2020-06-16] MEDS ORDERED: LACTATED RINGERS 1,000 ML IV SCH (11:15)
[2020-06-16] MEDS ORDERED: LACTATED RINGERS 1,000 ML IV ONE (11:20)
[2020-06-16 12:21] VITALS: BP 145/88; PULSE 75
== END 2020-06-16 12:39 | disposition home or self-care (01) ==
LOC: OR 08:40
PROVIDERS: ATTEND Obstetrics & Gynecology
DX: N92.0 Excessive and frequent menstruation with regular cycle (principal); D25.9 Leiomyoma of uterus, unspecified; A63.0 Anogenital (venereal) warts; K58.9 Irritable bowel syndrome, unspecified; Z79.899 Other long term (current) drug therapy; Z83.49 Family history of other endocrine, nutritional and metabolic diseases; Z91.018 Allergy to other foods
CPT/HCPCS: 81025; 88305; 58563; 56501; J2250; J1100; J2405; J2001; J3010; J1885; J2704; J1170

== ENCOUNTER → 2021-10-03 | Outpatient (CLI) | payer BC ==
--- NOTE | 2021-10-04 18:23 | MM ---
Reason for Exam: Screening (asymptomatic). Patient History: Menarche at age 12. Premenopausal. Last menstrual period: 09/21/2021 Risk Values: Kathy 5 year model risk: 0.4%. NCI Lifetime model risk: 8.0%. Prior Study Comparison: No prior studies available for comparison. Tissue Density: The breast tissue is heterogeneously dense. This may lower the sensitivity of mammography. Findings: Analyzed By CAD. On the superior aspect of the left breast on the MLO view, there is asymmetric density that could represent a prominent island of fibroglandular tissue. Further evaluation recommended. Otherwise, no suspicious microcalcification or other discrete abnormality is seen. Overall Assessment: Incomplete: need additional imaging evaluation, BI-RAD 0 Management: Special View Mammogram of the left breast. To include spot 3-D MLO and 3-D lateral views. Targeted left breast ultrasound if any persisting abnormality. Electronically signed and approved by: Frederick Sidhu M.D. Radiologist
== END | disposition home or self-care (01) ==
LOC: RADMAMWWP 15:52
PROVIDERS: ATTEND Obstetrics & Gynecology
DX: Z12.31 Encounter for screening mammogram for malignant neoplasm of breast (principal)
CPT/HCPCS: 77067

== ENCOUNTER → 2022-10-18 | Outpatient (CLI) | payer BC ==
--- NOTE | 2022-10-21 15:38 | MM ---
Reason for Exam: Screening (asymptomatic). Last screening mammogram was performed 12 month(s) ago. Patient History: Menarche at age 12. Patient has no children. Premenopausal. Last menstrual period: 10/18/2022 Risk Values: Kathy 5 year model risk: 0.7%. NCI Lifetime model risk: 12.0%. Prior Study Comparison: 10/03/2021 Bilateral MG screening mammo w CAD, [facility]. 10/24/2021 Left MG 3D work up w/cad , [facility]. Tissue Density: The breast tissue is extremely dense which could obscure a lesion on mammography. Findings: Analyzed By CAD. Pattern appears symmetrical and stable. No significant interval change is evident. There are some benign appearing smooth bordered calcifications within the upper left breast mediolateral oblique projection. No suspicious groups of microcalcifications, spiculated or lobular masses, architectural distortion or other secondary signs of malignancy are mammographically apparent. Overall Assessment: Benign, BI-RAD 2 Management: Screening Mammogram of both breasts in 1 year. A negative mammogram report should not preclude additional follow up of suspicious palpable abnormalities. Patient should continue monthly self breast exam. A clinical breast exam by your physician is recommended on an annual basis and results should be correlated with mammographic findings. Electronically signed and approved by: Ralf Levin D.O. Radiologis
== END | disposition home or self-care (01) ==
LOC: RADMAMWWP 09:46
PROVIDERS: ATTEND Obstetrics & Gynecology
DX: Z12.31 Encounter for screening mammogram for malignant neoplasm of breast (principal)
CPT/HCPCS: 77063; 77067

== ENCOUNTER → 2023-01-20 | Outpatient (CLI) | payer BC ==
[2023-01-21 02:29] LABS: Chloride 104 mmol/L (96-109); Glucose 105 mg/dL (70-110); Potassium 4.2 mmol/L (3.5-5.5); Sodium 139 mmol/L (135-145)
[2023-01-21 02:46] LABS: Basophils # (A) 0.06 X 10*3/uL (0.00-0.10); Basophils % (A) 0.9 %; Eosinophils # (A) 0.17 X 10*3/uL (0.04-0.35); Eosinophils % (A) 2.6 %; HCT 37.6 % (37.2-46.3); HGB 12.7 g/dL (12.0-15.0); Lymphocytes # (A) 1.94 X 10*3/uL (0.90-5.00); Lymphocytes % (A) 29.4 %; MCH 30.2 pg (27.0-32.0); MCHC 33.8 g/dL (32.0-37.0); MCV 89.3 FL (80.0-97.0); Mean Platelet Volume 10.6 FL (9.5-12.2); Monocytes # (A) 0.54 X 10*3/uL (0.20-1.00); Monocytes % (A) 8.2 %; NRBC Per 100 WBC 0 X 10*3/uL (0.00-0.01); Neutrophils # (A) 3.88 X 10*3/uL (1.80-7.70); Neutrophils % (A) 58.7 %; Platelet Count 271 X 10*3/uL (140-440); RBC 4.21 X 10*6/uL (4.10-5.20); RDW 12.4 % (11.5-14.5)
== END | disposition home or self-care (01) ==
LOC: LABPAT 15:56
PROVIDERS: ATTEND Obstetrics & Gynecology
DX: Z01.812 Encounter for preprocedural laboratory examination (principal); N93.8 Other specified abnormal uterine and vaginal bleeding
CPT/HCPCS: 36415; 80051; 82565; 82947; 84520; 85025; 86850; 86900; 86901; 87086

== ENCOUNTER 2023-01-29 07:29 | Day surgery (SDC) | payer BC ==
[2023-01-21 11:23] VITALS: BMI 19.3
--- NOTE | 2023-01-28 21:40 | HP ---
HISTORY AND PHYSICAL DATE OF SCHEDULED SURGERY: 01/29/2023 HISTORY OF PRESENT ILLNESS: The patient is a 42-year-old, 0, para 0 who presents with a longstanding history of dysfunctional uterine bleeding, treated in 2020 with NovaSure endometrial ablation. She continued to have regular cycles, though they became much more manageable after the ablation until recently. She has never, in the past, tolerated oral contraceptives. She now reports having a cycle roughly every 4 weeks, but it lasts for at least 2 weeks at a time and is moderately heavy with increasing cramping. She also has a known history of fibroids. She is requesting definitive therapy and examination bears out that she is a candidate only for a da Judi approach or open approach. PAST MEDICAL HISTORY: Significant for celiac disease as well as dysfunctional uterine bleeding and irritable bowel syndrome. PAST SURGICAL HISTORY: Significant for colonoscopy, endometrial ablation, and upper endoscopy. There been no anesthetic concerns reportedly. OBSTETRICAL HISTORY: 0, para 0 with current method of contraception vasectomy. GYNECOLOGIC HISTORY: Unremarkable except as noted in history of present illness. There is no history of any infections to include STDs. FAMILY HISTORY: Noncontributory. SOCIAL HISTORY: The patient is single and works for [employer]. She is a nonsmoker and reports occasional alcohol and no other social concerns. CURRENT MEDICATIONS: Include Motegrity 1 mg daily and vitamin D 1 daily. ALLERGIES: Only to gluten as a dietary allergy. REVIEW OF SYSTEMS: Confined to history of present illness. PHYSICAL EXAMINATION: VITAL SIGNS: Stable and the patient is afebrile. GENERAL: This is a well-developed, well-nourished white female, in no acute distress. HEART: Regular rhythm and rate without murmur. LUNGS: Clear to auscultation bilaterally in all russo. ABDOMEN: Nondistended, has normoactive bowel sounds, soft, nontender, without any palpable masses, hepatosplenomegaly, or hernias. EXTREMITIES: Without any cyanosis, clubbing, or edema and are nontender to palpation bilaterally. PELVIS: Demonstrates normal external genitalia and BUS with normal vaginal mucosa and cervix. There is no cervical motion tenderness. Uterus is 4-5 weeks in size, retroverted, mobile, nontender, and normal in shape. The adnexa are normal and nontender without mass bilaterally. ASSESSMENT AND PLAN: Dysfunctional uterine bleeding, the patient has failed endometrial ablation and is not a candidate for further medical interventions. She has requested definitive therapy with hysterectomy and has been found to be best approached with the da Judi robotically assisted laparoscopic hysterectomy with bilateral salpingectomy and diagnostic cystoscopy. The risks and complications of the procedure have been discussed at length including the risk for bleeding, bleeding requiring transfusion, infection, and injury to local structures to specifically include the bowel, bladder, and ureter. We also addressed the potential risks of da Judi surgery to include thermal injury and vaginal cuff dehiscence. She has understood all of this and agreed to proceed. We are scheduling for the above procedure on the morning of January 29, 2023. MMODL / IJN: [id number] /
[~2023-01-29 07:29] MED LIST changes: +HYDROmorphone 0.5 MG/0.5 ML SYRINGE IVP PRN; -LACTATED RINGERS 1,000 ML IV SCH; -MIDAZOLAM 2 MG/2 ML VIAL IV PRN; -Pre Op ABX Message 1 EACH MISC MISCELLANE ONE; +droPERidol 5 MG/2 ML VIAL IVP ONE
[2023-01-29] MEDS: LACTATED RINGERS 1,000 ML IV SCH ×2 (08:10→15:08)
[2023-01-29] MEDS ORDERED: MIDAZOLAM 2 MG/2 ML VIAL IVP ONE (08:38)
[2023-01-29] MEDS ORDERED: PROPOFOL 10 MG/ML 20 ML VIAL IV ONE (09:11)
[2023-01-29] MEDS ORDERED: MIDAZOLAM 2 MG/2 ML VIAL ONE (09:11)
[2023-01-29] MEDS ORDERED: LIDOCAINE 1% INJ 10MG/ML (20 ML MDV) ONE (09:11)
[2023-01-29] MEDS ORDERED: GLYCOPYRROLATE 0.2 MG/ML 2 ML VIAL ONE (09:11)
[2023-01-29] MEDS ORDERED: NEOSTIGMINE 1 MG/ML 10 ML VIAL ONE (09:11)
[2023-01-29] MEDS ORDERED: ROCURONIUM 10 MG/ML (5 ML VIAL) IV ONE (09:11)
[2023-01-29] MEDS ORDERED: SUCCINYLCHOLINE CHLORIDE 200 MG/10 ML VIAL IV ONE (09:11)
[2023-01-29] MEDS ORDERED: fentaNYL (PF) 50 MCG/ML 2 ML AMP ONE (09:11)
[2023-01-29] MEDS ORDERED: HYDROmorphone (PF) 1 MG/ML ONE (09:11)
[2023-01-29] MEDS ORDERED: BUPIVACAINE (PF) 0.25% 30 ML VIAL SQ ONE ×2 (10:14→10:56)
[2023-01-29] MEDS ORDERED: IBUPROFEN 600 MG TAB PO PRN (11:15)
[2023-01-29] MEDS ORDERED: METOCLOPRAMIDE 5 MG/ML 2 ML VIAL IVP PRN (11:15)
[2023-01-29] MEDS ORDERED: ONDANSETRON 4 MG/2 ML VIAL IVP PRN (11:15)
[2023-01-29] MEDS ORDERED: SIMETHICONE 80 MG CHEWABLE PO PRN (11:15)
[2023-01-29] MEDS ORDERED: Acetaminophen-Codeine 300-30mg TAB PO PRN ×2 (11:15)
--- NOTE | 2023-01-29 11:26 | P.OP ---
Date of Procedure: 01/29/23 Preoperative Diagnosis: #1. Menometrorrhagia #2. Dysfunctional uterine bleeding #3. Failed endometrial ablation Postoperative Diagnosis: Same Procedure(s) Performed: #1. Da Judi robotically assisted laparoscopic hysterectomy with bilateral salpingectomy #2. Diagnostic cystoscopy Anesthesia: KESHIA Surgeon: Danish Smith Lens Coater #1: Monica Gonzalez Estimated Blood Loss (ml): 150 IV fluids (ml): 600 Urine output (ml): 600 Pathology: other (Uterus and bilateral fallopian tubes) Condition: stable Disposition: PACU Operative Findings: Intraoperatively, the patient was found to have a slightly enlarged uterus with a roughly 1-2 cm right fundal fibroid which was subserosal in nature. The tubes and ovaries were otherwise normal to inspection. The ovaries were left in place. There is no evidence of pathology in the pelvis to include endometriosis. Following hysterectomy, the dome of the bladder was undamaged from a cystoscopic or laparoscopic perspective. The bilateral ureteral jets we re noted indicating ureteral integrity. Description of Procedure: The patient was prepped and draped in usual fashion after general endotracheal anesthesia was admission by the anesthesiologist. A weighted speculum was placed in the anterior lip of the cervix grasped with a single-tooth tenaculum. Uterus was sounded to approximately 10 cm. Serial dilation was carried out to admit a [facility] uterine manipulator with a medium cup which was placed in standard fashion. A Galaviz catheter was then placed. Attention was then turned to the abdomen where a site was selected approximately 3 synovators above the umbilicus in the midline where an 8 mm incision was made in the transverse plane. An 8 mm da Judi optical trocar was then inserted with the abdominal cavity without difficulty and a pneumoperitoneum instilled. A site was selected approximately 10-12 cm lateral to the optical port and 2-3 cm inferior in the right lower quadrant approximately even with the umbilicus where an 8 mm incision made in the transverse plane allowing insertion of an 8 mm da Judi trocar under direct visualization without difficulty. A myringotomy trocar was then placed in the left side equal to the umbilicus. The area between the left trocar and optical trocar was bisected and a site selected approximately 3 cm above the optical trocar were a 10 mm incision was made allowing insertion of a 10 mm geological survey field assistant port under direct visualization. The robot was then docked to the patient and the left arm loaded with a [place] bipolar cautery forceps while the right arm was loaded with a monopolar cautery scissors. The left fallopian tube was then elevated and removed from its underlying ovary and tissues using [place] bipolar cautery followed by monopolar cautery scissors. At the level of the uterus, the utero-ovarian ligament and round ligament were cauterized with the [place] and then cut with the scissors. Once through to the broad ligament, the bladder peritoneum was developed across the midline and the bladder reflected distally. Skeletonization of the uterine vasculature was carried out on that side and the uterine vessels were cauterized with the [place] bipolar cautery forceps. Attention was turned to the right side where similar operations were carried out without difficulty. The bladder peritoneum was connected across the anterior of the cervix and then reflected distally both bluntly and sharply. Once the uterine vasculature had been secured with cautery and then cut bilaterally, the vagina was sealed with a laparotomy sponge and the vaginal cuff opened sharply with the monopolar cautery scissors anteriorly. This was then followed around posteriorly and then reconnected and the anterior until the uterus was free. The uterus was removed into the vagina and a laparotomy sponge placed again. The scissors were replaced with a laparoscopic suturing device and a stitch of 0 Stratafix was passed into the abdomen. This was used to close the vaginal cuff from right to left in standard fashion repeating backwards on itself or 2 stitches at the left angle. Hemostasis appeared to be excellent. I then returned to the patient and remove the Galaviz catheter. I placed a diagnostic cystoscope and filled the bladder with sterile water. The dome of the bladder was undamaged both from a cystoscopic and laparoscopic perspective. The ureteral hallux were examined and both noted to be peristalsing in standard fashion. The instrumentation was then removed and the Galaviz cath replaced. The robot was undocked an Allis her mentation removed abdominally after evacuating the entire pneumoperitoneum. The skin incisions were closed with interrupted subcuticular stitches of 4-0 Vicryl followed by half-inch Steri-Strips placed with Mastisol. The incisions were infused with a total of 10 mL of half percent Marcaine without epinephrine equally infuse between the 4 incisions. Estimated blood loss for the case was approximately 150 mL. There were no complications. All sponge, instrument, and needle counts were correct. The patient tolerated the procedure well and proceeded to the recovery room in stable condition.
[2023-01-29] MEDS: diphenhydrAMINE 50 MG/ML 1 ML VIAL IVP PRN ×2 (11:40→20:54)
[2023-01-29] MEDS: KETOROLAC 15 MG/ML 1 ML VIAL IVP PRN (17:10)
[2023-01-29] MEDS: SENNOSIDES-DOCUSATE SODIUM 1 EACH TAB PO SCH (23:25)
[2023-01-30] MEDS: LACTATED RINGERS 1,000 ML IV SCH ×3 (05:38→10:23)
[2023-01-30 06:07] LABS: Basophils % (A) 0 %; Eosinophils % (A) 0 %; HCT 34.5 % (34.0-46.0); HGB 11.6 gm/dL (11.4-16.0); Lymphocytes # (A) 1.2 k/uL (1.0-4.8); Lymphocytes % (A) 12 %; MCH 30.6 pg (25.0-35.0); MCHC 33.7 g/dL (31.0-37.0); MCV 90.8 fL (80.0-100.0); Mean Platelet Volume 7.6; Monocytes # (A) 0.6 k/uL (0-1.0); Monocytes % (A) 6 %; Neutrophils # (A) 8.6 k/uL (1.3-7.7); Neutrophils % (A) 81 %; Platelet Count 259 k/uL (150-450); RDW 12.6 % (11.5-15.5); WBC 10.6 k/uL (3.8-10.6)
[2023-01-30] MEDS: KETOROLAC 15 MG/ML 1 ML VIAL IVP PRN (08:00)
[2023-01-30] MEDS: SENNOSIDES-DOCUSATE SODIUM 1 EACH TAB PO SCH (08:05)
--- NOTE | 2023-01-30 08:53 | P.DS ---
Providers Expected date of discharge: 01/30/23 Attending physician: Danish Smith Primary care physician: David Charlton - Discharge Diagnosis(es) (1) Dysfunctional uterine bleeding Current Visit: Yes Status: Acute (2) Menometrorrhagia Current Visit: Yes Status: Acute (3) Fibroid uterus Current Visit: No Status: Acute Hospital Course: The patient is a 42-year-old 0 para 0 presented to the office with ongoing menometrorrhagia bleeding 2 weeks out of every 4 and occasionally very heavily. She has failed endometrial ablation and is not a candidate for further medical interventions as she has failed or Symptoms in the past and had an ablation. After discussion, she opted for definitive therapy with hysterectomy. She was taken the operating room where she underwent da Judi robotically assisted laparoscopic hysterectomy with bilateral salpingectomy and diagnostic cystoscopy and uncomplicated fashion. Her postoperative course was unremarkable with vital signs remaining stable and her temperature was afebrile throughout. She was deemed stable for discharge on postoperative day #1 and was discharged home to follow-up in the office in 2 weeks for an incision check and 8 weeks routinely. Discharge instructions included calling for any significantly increased bleeding, fever, pain, urinary complaints, GI complaints, or anything else that concerned her. She was additionally instructed to have nothing in the vagina for at least 8 weeks time to include intercourse. She understood her instructions and agrees to follow up as noted above. Discharge medications included any normal home medications as well as [id number] analgesic pain medications. She was provided with prescription for Tylenol 3, 1-2 by mouth every 6 hours when necessary pain, #20 dispensed with no refills. Discharge hemoglobin and hematocrit were 11.6 and 34.5 respectively. Procedures: #1. Da Judi robotically assisted laparoscopic hysterectomy with bilateral salpingectomy #2. Diagnostic cystoscopy Patient Condition at Discharge: Stable Plan - Discharge Summary Discharge Rx Participant: No New Discharge Prescriptions: No Action Prucalopride Succinate [Motegrity] 2 mg PO HS Cholecalciferol (Vitamin D3) [Vitamin D3 (50 Mcg = 2000 Iu) Chew Tab] 2,000 unit PO DAILY Discharge Medication List Cholecalciferol (Vitamin D3) [Vitamin D3 (50 Mcg = 2000 Iu) Chew Tab] 2,000 unit PO DAILY 01/21/23 [History] Prucalopride Succinate [Motegrity] 2 mg PO HS 01/21/23 [History] Follow up Appointment(s)/Referral(s): Danish Smith MD [STAFF PHYSICIAN] - 2 Weeks Discharge Disposition: HOME SELF-CARE
[2023-01-30 10:45] VITALS: BP 117/68; PULSE 88; RESP 17; TEMP 98.2
[2023-01-30] MEDS ORDERED: ACETAMINOPHEN TAB 325 MG TAB PO PRN (11:17)
== END 2023-01-30 10:15 | disposition home or self-care (01) ==
LOC: OR 07:29 → 4FBP 11:01 → OR 01-30 10:15
PROVIDERS: ATTEND Obstetrics & Gynecology
DX: N92.1 Excessive and frequent menstruation with irregular cycle (principal); N93.8 Other specified abnormal uterine and vaginal bleeding; K90.0 Celiac disease; Z98.890 Other specified postprocedural states; Z79.899 Other long term (current) drug therapy
CPT/HCPCS: 85025; 58571; J2250; J1200; J1100; J0690; J2405; J1885 ×2; J0665

== ENCOUNTER → 2023-11-27 | Outpatient (CLI) | payer BC ==
--- NOTE | 2023-11-30 08:14 | MM ---
Reason for Exam: Screening (asymptomatic). Last mammogram was performed 1 year(s) and 1 month(s) ago. Patient History: Menarche at age 12. Patient has no children. Hysterectomy at age 42. Premenopausal. Last menstrual period: Risk Values: Kathy 5 year model risk: 0.8%. NCI Lifetime model risk: 11.9%. Prior Study Comparison: 10/03/2021 Bilateral MG screening mammo w CAD, [facility]. 10/24/2021 Left MG 3D work up w/cad , [facility]. 10/18/2022 Bilateral MG 3D screening mammo w/cad, [facility]. Tissue Density: The breasts are heterogeneously dense, which may obscure small masses. Findings: Analyzed By CAD. The pattern is symmetrical. There is an oval density with partially obscured margins measuring 6 1.0 cm located 2.3 cm from the nipple within the left breast was previously slightly medial midline. This is a change. Additional workup is recommended with ultrasound. Right Breast:No suspicious groups of microcalcifications, spiculated or lobular masses, architectural distortion or other secondary signs of malignancy are mammographically apparent. Overall Assessment: Incomplete: need additional imaging evaluation, BI-RAD 0 Management: Diagnostic Breast Ultrasound of the left breast. A negative mammogram report should not preclude additional follow up of suspicious palpable abnormalities. Patient should continue monthly self breast exam. A clinical breast exam by your physician is recommended on an annual basis and results should be correlated with mammographic findings. Note on Kathy scores and lifetime risk: 1. A Kathy score greater than 3% is considered moderate risk. If this is the case, consider specialist referral to assess eligibility for a risk reducing agent. 2. If overall lifetime risk for the development of breast cancer is 20% or higher, the patient may qualify for future screening with alternating mammogram and breast MRI. [facility], , 11/30/2023 8:11 AM. Electronically signed and approved by: Ralf Levin D.O. Radiologis
== END | disposition home or self-care (01) ==
LOC: RADMAMWWP 16:36
PROVIDERS: ATTEND Obstetrics & Gynecology
CPT/HCPCS: 77063; 77067

== ENCOUNTER → 2023-12-02 | Outpatient (CLI) | payer BC ==
--- NOTE | 2023-12-02 11:46 | USB ---
Reason for Exam: Additional evaluation requested from abnormal screening. Patient History: Menarche at age 12. Patient has no children. Hysterectomy at age 42. Premenopausal. Risk Values: Kathy 5 year model risk: 0.8%. NCI Lifetime model risk: 11.9%. Technique: Method: Targeted. Prior Study Comparison: 10/24/2021 Left MG 3D work up w/cad LT, [facility]. 10/18/2022 Bilateral MG 3D screening mammo w/cad, [facility]. 11/27/2023 Bilateral MG 3D screening mammo w/cad, [facility]. Findings: The medial section of the breast of the left breast, the axilla of the left breast and the retroareolar of the left breast were scanned. Multiple simple cysts are noted left breast measuring up to 1.9 x 0.6 cm. No solid masses seen. Normal breast parenchyma seen at the left 11:00 position. Overall Assessment: Benign, BI-RAD 2 Management: Screening Mammogram of both breasts in 1 year. A clinical breast exam by your physician is recommended on an annual basis and results should be correlated with mammographic findings. This exam should not preclude additional follow-up of suspicious palpable abnormalities. Results were given to the patient verbally at the time of exam. [facility], , 12/02/2023 11:40 AM. Electronically signed and approved by: Navi Mcgee M.D. Radiologis
== END | disposition home or self-care (01) ==
LOC: RADUSWWP 10:56
PROVIDERS: ATTEND Obstetrics & Gynecology